=== PATIENT | female | born 1995 | race Caucasian/White ===

== ENCOUNTER 2017-05-29 01:48 | Inpatient (IN) | payer OTHER ==
[2017-05-29] MEDS ORDERED: ONDANSETRON 4 MG/2 ML VIAL IVP ONE ×2 (01:57→03:11)
[2017-05-29] MEDS ORDERED: NS 2,000 ML IV ONE (01:57)
--- NOTE | 2017-05-29 01:57 | EDPHY ---
H & P Stated Complaint: N/V since last night HPI/ROS: HPI CHIEF COMPLAINT: Nausea vomiting times 24 hours HISTORY OF PRESENT ILLNESS: This patient very pleasant 21-year-old female, she is insulin-dependent diabetic, type 1, remote history of DKA and age 7. She presents emergency room at 2 o'clock in the morning with nausea vomiting. Abdominal cramps. No diarrhea. Low-grade fever 99.9. She distally report shortness of breath and tachypnea. She states for the past 24 hours she has had countless episodes of vomiting. And now dry heaving. No significant pain. Past Medical History: Insulin-dependent diabetes, remote history of DKA Past Surgical History: No recent surgery Social History: Drinks wine occasionally, no daily use of drugs alcohol tobacco. Family History: Noncontributory ROS REVIEW OF SYSTEMS: A comprehensive 10 point review of systems is otherwise negative aside from elements mentioned in the history of present illness. Exam Constitutional appears nontoxic however noted to be tachypneic and tachycardic, triage nursing summary reviewed, vital signs reviewed, awake/alert. Eyes normal conjunctivae and sclera, EOMI, PERRLA. HENT normal inspection, atraumatic, extremely dry mucous membranes, no epistaxis, neck supple/ no meningismus, no raccoon eyes. Respiratory clear to auscultation bilaterally, normal breath sounds, no respiratory distress, no wheezing. Cardiovascular rate normal, regular rhythm, no murmur, no edema, distal pulses normal. Gastrointestinal soft, non-tender, no rebound, no guarding, normal bowel sounds, no distension, no pulsatile mass. Genitourinary no CVA tenderness. Musculoskeletal no midline vertebral tenderness, full range of motion, no calf swelling, no tenderness of extremities, no meningismus, good pulses, neurovascularly intact. Skin pink, warm, & dry, no rash, skin atraumatic. Neurologic awake, alert and oriented x 3, AAOx3, moves all 4 extremities equally, motor intact, sensory intact, CN II-XII intact, normal cerebellar, normal vision, normal speech. Psychiatric normal mood/affect. Heme/Lymph/Immune no lymphadenopathy. Differential Diagnosis: Includes but is not limited to in a particular order, DKA, honk, dehydration, electrolyte disturbance, infection Medical Decision Making: Plan for this patient IV establishment IV fluid bolus 2 L normal saline, IV Zofran for nausea check electrolytes, check for DKA. Re-evaluation: 0242AM: This patient's chemistry has resulted sugar over 600. Very low bicarb. Patient is in DKA. Patient is receiving 2 L normal saline at this time. She will be started on insulin drip. Patient be admitted to the ICU for DKA. Spoke with Dr. Wilburn who agrees to admit. Patient be admitted to the ICU. She is hemodynamically stable. Noted to be tachypneic due to acidosis. Insulin drip ordered. No Insulin bolus. She is receiving 2 L of fluid at this time. 0259AM: I did go and evaluate this patient's arms her bilateral upper arms where her insulin pump is injected she has 2 areas of redness at the injection sites 1 on both arms posterior upper. Appear to be micro abscesses and cellulitis. This may be the cause of her DKA. We will obtain blood cultures. Started on vancomycin. 0310AM: Posterior arms bilaterally show 2 very discrete small abscesses where she places her insulin pump. The 1 on the left is worse than the 1 on the right. Under ultrasound guidance I was able to see cellulitis of both upper extremities with a very small tiny abscess on both sides 2 cm x 2 cm. Given how sick she is with elevated white count, DKA, low-grade temperature, tachycardia, tachypnea, elevated lactic acid, I do feel the patient would benefit from drainage of these 2 abscess. I and D will be performed both arms. Here in the emergency room. Culture to follow. Procedure: I+D: I performed bilateral arm I and D procedure. 2 small abscesses were drained. Lidocaine with epinephrine 5 cc were instilled in both arm abscess. Stab incision was made with 11 blade scalpel. Very small amount of pus came from the left arm abscess TWO ccs. And right arm abscess stab incision was made TWO ccs of pus removed. Of note this patient had elevated lactic acid. 3.5. She is not hypotensive. She is not febrile. Elevated lactic acid is most likely due to dehydration with nausea vomiting and also DKA. Source: Patient - Personal History LMP (Females 10-55): Now Current Tetanus/Diphtheria Vaccine: Yes Current Tetanus Diphtheria and Acellular Pertussis (TDAP): Yes Tetanus Vaccine Date: <10 years - Medical/Surgical History Hx Asthma: No Hx Chronic Respiratory Disease: No Hx Diabetes: Yes Hx Cardiac Disease: No Hx Renal Disease: No Hx Cirrhosis: No Hx Alcoholism: No Hx HIV/AIDS: No Hx Splenectomy or Spleen Trauma: No Other PMH: Diabetes Type I, Diagnoses at age 7; Celiac dz - Social History Smoking Status: Never smoked Constitutional: Initial Vital Signs Temperature (C) 36.8 C 05/29/17 01:50 Heart Rate 117 H 05/29/17 01:50 Respiratory Rate 24 H 05/29/17 01:50 Blood Pressure 132/69 H 05/29/17 01:50 O2 Sat (%) 97 05/29/17 01:50 O2 Delivery Mode Room Air Allergies/Adverse Reactions: erythromycin base [Erythromycin Base] Allergy (Intermediate, Verified 05/29/17 01:52) Vomiting Home Medications: Medication Instructions Recorded Insulin Pump, Patient Own 1 ea MISC Q3D #0 01/29/16 Albuterol [Proventil Inhaler HFA 1 - 2 puffs IH DAILY PRN 05/29/17 (*)] Norethindrone AC-Eth Estradiol 1 each PO DAILY 05/29/17 [Loestrin 21 1-20 Tablet] Medical Decision Making - Data Points Laboratory Results: Laboratory Results 05/29/17 02:06 05/29/17 02:06 Medications Given: Cephalexin HCl (Keflex) 500 mg PO Q6HRS AMERICO PRN Reason: Protocol Stop: 06/28/17 16:14 Last Admin: 05/29/17 17:50 Dose: Not Given Insulin Human Regular 100 unit (/ Sodium Chloride) 101 mls @ 0 mls/hr IV AD AMERICO ; Per Protocol PRN Reason: Protocol Stop: 11/25/17 03:21 Last Admin: 05/29/17 16:10 Dose: 101 mls Dextrose/Sodium Chloride (D5w Ns) 1,000 mls @ 0 mls/hr IV AD AMERICO; Per Protocol PRN Reason: Protocol Stop: 11/25/17 03:21 Last Admin: 05/29/17 10:57 Dose: 1,000 mls Ondansetron HCl (Zofran) 4 mg IVP Q4HRS PRN PRN Reason: Nausea/Vomiting, Can't Take PO Stop: 11/25/17 03:11 Last Admin: 05/29/17 08:15 Dose: 4 mg Pantoprazole Sodium (Protonix) 40 mg PO DAILY AMERICO Stop: 11/25/17 10:29 Last Admin: 05/29/17 10:57 Dose: 40 mg Discontinued Medications Sodium Chloride (Ns) 2,000 mls @ 0 mls/hr IV EDNOW ONE; Wide Open PRN Reason: Protocol Stop: 05/29/17 01:58 Last Admin: 05/29/17 02:00 Dose: 2,000 mls Insulin Human Regular 100 unit / Miscellaneous Medication 1 ea/ Sodium Chloride 101 mls @ 3 mls/hr IV EDNOW ONE PRN Reason: Protocol Stop: 05/30/17 12:17 Last Admin: 05/29/17 03:02 Dose: 101 mls Vancomycin/Sodium Chloride (Vancomycin 1 Gm (Premix)) 250 mls @ 250 mls/hr IV EDNOW ONE PRN Reason: Protocol Stop: 05/29/17 03:57 Last Admin: 05/29/17 03:26 Dose: 250 mls Sodium Chloride (Ns) 1,000 mls @ 500 mls/hr IV ONCE ONE Stop: 05/29/17 05:59 Last Admin: 05/29/17 04:06 Dose: 1,000 mls Sodium Chloride (Ns) 1,000 mls @ 250 mls/hr IV Q4H AMERICO Stop: 05/29/17 13:59 Last Admin: 05/29/17 10:58 Dose: 1,000 mls Vancomycin HCl 750 mg/ (Dextrose) 150 mls @ 150 mls/hr IV Q12H AMERICO Stop: 06/28/17 14:59 Last Admin: 05/29/17 15:04 Dose: Not Given Ondansetron HCl (Zofran) 4 mg IVP EDNOW ONE Stop: 05/29/17 01:58 Last Admin: 05/29/17 02:03 Dose: 4 mg Ondansetron HCl (Zofran) 4 mg IVP EDNOW ONE Stop: 05/29/17 03:12 Last Admin: 05/29/17 03:11 Dose: 4 mg Departure - Departure Disposition: [facility] Acute Clinical Impression: Hyperglycemia, Abscess DKA (diabetic ketoacidoses) Qualifiers: Diabetes mellitus type: type 1 Diabetes mellitus complication detail: without coma Qualified Code(s): E10.10 - Type 1 diabetes mellitus with ketoacidosis without coma Cellulitis Qualifiers: Site of cellulitis: extremity Site of cellulitis of extremity: upper extremity Laterality: unspecified laterality Qualified Code(s): L03.119 - Cellulitis of unspecified part of limb Condition: Critical
[2017-05-29 02:17] LABS: % IMMATURE GRANULYOCYTES 0.6 % (0.0-1.1); ABSOLUTE IMMATURE GRANULOCYTES 0.14 10^3/uL (0.00-0.10); ADD DIFF? NO; ADD MORPH? NO; ADD SCAN? NO; ATYPICAL LYMPHOCYTE FLAG 0 (0-99); FRAGMENT RBC FLAG 0 (0-99); HEMATOCRIT 50.1 % (38.0-47.0); HEMOGLOBIN 16.6 g/dL (12.6-16.3); LEFT SHIFT FLG 0 (0-99); LIPEMIA HEMOLYSIS FLAG 80 (0-99); MEAN CELL HEMOGLOBIN 31.1 pg (27.9-34.1); MEAN CELL HEMOGLOBIN CONCENTR. 33.1 g/dL (32.4-36.7); MEAN PLATELET VOLUME 10.9 fL (8.7-11.7); PLATELET CLUMPS FLAG 0 (0-99); PLATELET COUNT 426 10^3/uL (150-400); RED BLOOD CELL COUNT 5.33 10^6/uL (4.18-5.33); RED CELL DISTRIBUTION WIDTH 12.1 % (11.5-15.2)
[2017-05-29 02:32] LABS: ALANINE AMINOTRANSFERASE 30 IU/L (9-52); ALBUMIN 5.5 g/dL (3.5-5.0); ALKALINE PHOSPHATASE 111 IU/L (38-126); ASPARTATE AMINOTRANSFERASE 24 IU/L (14-46); BILIRUBIN,TOTAL 0.7 mg/dL (0.1-1.4); BILIRUBIN-CONJUGATED 0.4 mg/dL (0.0-0.5); BILIRUBIN-UNCONJUGATED 0.3 mg/dL (0.0-1.1); CALCIUM 10.6 mg/dL (8.5-10.4); CHLORIDE 98 mEq/L (97-110); CREATININE 1.4 mg/dL (0.6-1.0); GLOMERULAR FILTRATION RATE 47; POTASSIUM 6.2 mEq/L (3.5-5.2); SODIUM 136 mEq/L (134-144); TOTAL PROTEIN 9.5 g/dL (6.3-8.2)
[2017-05-29 02:37] LABS: CARBON DIOXIDE < 5 mEq/l (22-31)
[2017-05-29 02:38] LABS: GLUCOSE 615 mg/dL (70-100)
[2017-05-29] MEDS ORDERED: INSULIN REGULAR HUMAN 100 UNIT, COSIGN. REQUIRED 1 EA in NS 100 ML IV ONE (02:38)
[2017-05-29] MEDS ORDERED: VANCOMYCIN HCL/NORMAL SALINE 250 ML IV ONE (02:58)
[2017-05-29] MEDS ORDERED: ACETAMINOPHEN 325 MG TAB PO PRN (03:12)
[2017-05-29] MEDS ORDERED: ONDANSETRON 4 MG/2 ML VIAL IVP PRN (03:12)
[2017-05-29] MEDS ORDERED: INSULIN REGULAR HUMAN 100 UNIT/ML IVP PRN (03:22)
[2017-05-29] MEDS ORDERED: D10W 250 ML PRN HYPOGLYCEMIA IV (03:22)
[2017-05-29] MEDS ORDERED: NS 1,000 ML IV ONE (04:00)
[2017-05-29 04:05] LABS: COLOR PALE YELLOW; LEUKOCYTE ESTERASE,URINE NEGATIVE (NEGATIVE); NITRITE,URINE NEGATIVE (NEGATIVE)
[2017-05-29 04:10] LABS: MUCUS TRACE /lpf (NONE-1+)
--- NOTE | 2017-05-29 04:15 | GHP ---
[f rep st] HISTORY AND PHYSICAL DATE OF ADMISSION: 05/29/2017 CHIEF COMPLAINT: Nausea, vomiting. HISTORY OF PRESENT ILLNESS: This is a 21-year-old female with type 1 diabetes who uses an insulin po d who presents with about 3 days of not feeling well. This began on Sunday. She uses insulin pods w hich she fills with insulin, this lasts 3 days and provides her with continuous insulin. On Sunday, she moved her pod from her right arm to her left arm. She noticed that there was a small area of red ness around where her pod was. She was concerned that the pod may have not been functioning. Since then, she has had ongoing nausea and some vomiting. Sunday, she was able to eat a little bit. The n, she continued to get worse, again. The evening of her presentation, she began to feel extremely t achypneic. She did have some fevers over the past 24 hours. She has some pain at the pod site. The redness is very atypical for these pods. She did have an abscess in her hip when she was much young er. She has been feeling confused for the past few days. PAST MEDICAL/SURGICAL HISTORY: 1. Diabetes mellitus type 1. 2. Celiac. MEDICATIONS: Please see medication reconciliation. ALLERGIES: Erythromycin. FAMILY HISTORY: No diabetes. SOCIAL HISTORY: She does not smoke tobacco. She occasionally drinks alcohol. Her mother is at her bedside. REVIEW OF SYSTEMS: 10-point review of systems is conducted and is negative, except per HPI. PHYSICAL EXAMINATION: VITAL SIGNS: Blood pressure 143/68, heart rate was as high as 117, respiratio n rate is 24, satting 97% on room air, temperature 36.8. GENERAL: The patient is a distressed-appea ring female who has deep and rapid inhalation. HEENT: Show her to be normocephalic, atraumatic. CA RDIOVASCULAR: Shows her to have a regular rate and rhythm. No murmurs, rubs, or gallops. PULMONARY : Shows lungs clear to auscultation bilaterally. She is very tachypneic. ABDOMEN: Soft, nontender , nondistended. SKIN: Shows her to have on her bilateral arms an area of redness with some warmth. The 1 on the left arm is slightly fluctuant. Warmth is a few centimeters. The area of redness is p robably 4 cm in diameter. : Shows no Lux. NEUROLOGIC: Shows her to be alert and oriented x3. She is moving all extremities. PSYCHIATRIC: Shows a normal mood and affect. LABORATORY DATA: White count is 24,000, platelets are 426. Lactate is 3.5. Bicarb is undetectable. Potassium 6.2, glucose is 615, creatinine is 1.4. DATA: 1. I discussed this with Dr. Monteiro. 2. I reviewed her old chart, including her hospitalization in 2015 for DKA. IMPRESSION AND PLAN: A 21-year-old female with diabetic ketoacidosis. 1. Diabetic ketoacidosis: This is quite severe and critical. She will be admitted to the intensive care unit for IV insulin, aggressive IV hydration, frequent laboratory monitoring to follow her elec trolytes closely. I am concerned that a skin infection may be driving her diabetic ketoacidosis. 2. Cellulitis and abscess: This seems to be where her pods had been placed. They are being I and D in the emergency department, this will be sent for culture. Pending culture results, we will provid e her with vancomycin. 3. Acute kidney injury: Prerenal. Follow with aggressive hydration. 4. Leukocytosis: May be stress in the setting of her acute diabetic ketoacidosis, but also concerni ng for infection. We will treat as above. BILLING: I spent 40 minutes of critical care time managing severe acidosis. /[id number]/MODL
[2017-05-29 05:07] LABS: PCO2 VENOUS 20 mmHg (40-44); PO2 VENOUS 44 mmHg (35-40); TCO2 VENOUS 5 mEq/L (23-27); VEN MEASURED OXYGEN SATURATION 61 % (65-75)
[2017-05-29 05:14] LABS: % IMMATURE GRANULYOCYTES 0.8 % (0.0-1.1); ABSOLUTE IMMATURE GRANULOCYTES 0.19 10^3/uL (0.00-0.10); ADD DIFF? NO; ADD MORPH? NO; ADD SCAN? NO; ATYPICAL LYMPHOCYTE FLAG 0 (0-99); FRAGMENT RBC FLAG 0 (0-99); HEMATOCRIT 44.6 % (38.0-47.0); HEMOGLOBIN 14.6 g/dL (12.6-16.3); LEFT SHIFT FLG 10 (0-99); LIPEMIA HEMOLYSIS FLAG 80 (0-99); MEAN CELL HEMOGLOBIN 31.3 pg (27.9-34.1); MEAN CELL HEMOGLOBIN CONCENTR. 32.7 g/dL (32.4-36.7); MEAN CELL VOLUME 95.5 fL (81.5-99.8); MEAN PLATELET VOLUME 10.8 fL (8.7-11.7); PLATELET CLUMPS FLAG 10 (0-99); PLATELET COUNT 374 10^3/uL (150-400); RED BLOOD CELL COUNT 4.67 10^6/uL (4.18-5.33); RED CELL DISTRIBUTION WIDTH 12.2 % (11.5-15.2)
[2017-05-29 05:40] LABS: ALANINE AMINOTRANSFERASE 32 IU/L (9-52); ALBUMIN 4.4 g/dL (3.5-5.0); ALKALINE PHOSPHATASE 90 IU/L (38-126); ASPARTATE AMINOTRANSFERASE 18 IU/L (14-46); BILIRUBIN,TOTAL 0.4 mg/dL (0.1-1.4); CALCIUM 8.6 mg/dL (8.5-10.4); CHLORIDE 110 mEq/L (97-110); CHOLESTEROL 154 mg/dL (140-200); CHOLESTEROL/HDL RATIO 3.02 RATIO (1.00-4.44); CREATININE 1.2 mg/dL (0.6-1.0); GLOMERULAR FILTRATION RATE 56; GLUCOSE 389 mg/dL (70-100); HIGH DENSITY LIPOPROTEIN 51 mg/dL (40-75); LDL/HDL RATIO 1.22 RATIO (1.00-3.22); LOW DENSITY LIPOPROTEIN 62 mg/dL (60-100); NON-HIGH DENSITY LIPOPROTEIN 103 mg/dL (90-129); POTASSIUM 5.7 mEq/L (3.5-5.2); SODIUM 141 mEq/L (134-144); TOTAL PROTEIN 7.6 g/dL (6.3-8.2); TRIGLYCERIDE 208 mg/dL (35-135); VERY LOW DENSITY LIPOPROTEINS 41 mg/dL (8-25)
[2017-05-29 06:02] LABS: CARBON DIOXIDE < 5 mEq/l (22-31)
[2017-05-29] MEDS: NS 1,000 ML IV SCH ×2 (06:10→10:58)
[2017-05-29 10:18] LABS: ANION GAP 21 mEq/L (8-16); CALCIUM 8.3 mg/dL (8.5-10.4); CHLORIDE 112 mEq/L (97-110); CREATININE 1.1 mg/dL (0.6-1.0); GLOMERULAR FILTRATION RATE > 60; GLUCOSE 232 mg/dL (70-100); POTASSIUM 5.2 mEq/L (3.5-5.2); SODIUM 139 mEq/L (134-144)
[2017-05-29 10:45] LABS: HEMOGLOBIN A1C 12.4 % (4.0-6.0)
[2017-05-29] MEDS: D5W NS 1,000 ML IV SCH (10:57)
[2017-05-29] MEDS: PANTOPRAZOLE SODIUM 40 MG TAB PO SCH (10:57)
[2017-05-29 13:21] LABS: CARBON DIOXIDE 6 mEq/l (22-31)
--- NOTE | 2017-05-29 13:44 | ASMTCMCOM ---
CM Note CM Note Notes: Patient admitted with DKA. Is employed and lives with mother, no hx of frequent hospital admissions for DKA. Will likely d/c home independently when medically stable. CM available if needs arise. Date Signed: 05/29/2017 01:43 PM Electronically Signed By:Arelis Alcaraz RN
[2017-05-29] MEDS ORDERED: 1/2 NS 1,000 ML IV SCH (14:00)
[2017-05-29 14:36] LABS: ANION GAP 12 mEq/L (8-16); CALCIUM 7.8 mg/dL (8.5-10.4); CARBON DIOXIDE 12 mEq/l (22-31); CHLORIDE 114 mEq/L (97-110); CREATININE 0.8 mg/dL (0.6-1.0); GLOMERULAR FILTRATION RATE > 60; GLUCOSE 228 mg/dL (70-100); POTASSIUM 4.1 mEq/L (3.5-5.2); SODIUM 138 mEq/L (134-144)
[2017-05-29] MEDS ORDERED: VANCOMYCIN 750 MG in D5W 150 ML IV SCH (15:00)
[2017-05-29] MEDS ORDERED: ALBUTEROL 200 PUFFS/18 GM MDI IH PRN (16:07)
[2017-05-29] MEDS: INSULIN REGULAR HUMAN 100 UNIT in NS 100 ML IV SCH ×2 (16:10→23:25)
--- NOTE | 2017-05-29 16:12 | HOSPPROG ---
Hospitalist Progress Note Assessment/Plan: 21 yo F with DM1 using an insulin pod at baseline presenting with pain/redness at pod site and DKA # DKA: pw glucose of 615 and HCO3 so low that gap was not able to be calculated , improving slowly but still on insulin gtt and gap still open this morning. Will transition to SC insulin when gap closed. # cellulitis: mild erythema and apparently fluctuance earlier around the pod site, cultures pending from aspiration but now with only very minimal erythema and no induration or fluctuance appreciated. Will dc vanco and transition to keflex and continue to monitor # holden: resolved, in the setting of profound acidosis and volume depletion with dka, now resolved # IP status, will need > 48 hours stay for evaluation/mgmt of above, high risk requiring insulin drip Patient new to my care. Old records reviewed and summarized as above. care plan reviewed with Dr. Ríos and multidisciplinary care team. Subjective: no significant overnight events, patient currently feeling better than yesterday, not nauseated, arm doesnt hurt, no fever or chills Objective: Vital Signs Temp Pulse Resp BP Pulse Ox 36.9 C 94 27 H 99/57 L 97 05/29/17 12:00 05/29/17 14:29 05/29/17 14:29 05/29/17 14:29 05/29/17 14:29 Microbiology 05/29/17 03:20 Gram Stain - Final Arm - Swab Laboratory Results 05/29/17 04:45 05/29/17 14:00 05/28/17 05/29/17 05/30/17 05:59 05:59 05:59 Intake Total 1500 2049.9 Output Total 900 Balance 1500 1149.9 awake alert nad anicteric op clear rrr no mrg cta b soft nt nd no cce warm dry well perfused oriented appropriate ICD10 Worksheet Patient Problems: Problems Problem Status Onset Cellulitis and abscess Acute Diabetes Acute Diabetic ketoacidosis Acute Dehydration Acute Acute pyelonephritis Acute ESBL (extended spectrum beta-lactamase) producing bacteria infection Acute Hyperglycemia Acute Cellulitis Acute Abscess Acute
[2017-05-29] MEDS: CEPHALEXIN 500 MG CAP PO SCH ×2 (16:29→17:50)
[2017-05-29 19:15] LABS: ANION GAP 7 mEq/L (8-16); CARBON DIOXIDE 14 mEq/l (22-31); CHLORIDE 113 mEq/L (97-110); CREATININE 0.8 mg/dL (0.6-1.0); GLOMERULAR FILTRATION RATE > 60; GLUCOSE 171 mg/dL (70-100); POTASSIUM 3.8 mEq/L (3.5-5.2); SODIUM 134 mEq/L (134-144)
[2017-05-29] MEDS ORDERED: PROTOCOL POTASSIUM 1 DOSE MISC PRN ×2 (21:27→21:37)
[2017-05-29] MEDS ORDERED: POTASSIUM CL 10 MEQ TAB PO ONE (22:11)
[2017-05-30 01:19] LABS: ANION GAP 9 mEq/L (8-16); CALCIUM 7.5 mg/dL (8.5-10.4); CARBON DIOXIDE 14 mEq/l (22-31); CHLORIDE 115 mEq/L (97-110); CREATININE 0.7 mg/dL (0.6-1.0); GLOMERULAR FILTRATION RATE > 60; GLUCOSE 82 mg/dL (70-100); POTASSIUM 3.3 mEq/L (3.5-5.2); SODIUM 138 mEq/L (134-144)
[2017-05-30] MEDS: CEPHALEXIN 500 MG CAP PO SCH ×3 (01:26→11:56)
[2017-05-30] MEDS ORDERED: POTASSIUM CL 10 MEQ TAB PO ONE ×2 (01:30→06:14)
[2017-05-30] MEDS: ONDANSETRON DISINTEGRATING 4 MG TAB PO PRN ×3 (03:19→12:00)
[2017-05-30] MEDS: D5W NS 1,000 ML IV SCH ×2 (03:20→09:00)
[2017-05-30 05:53] LABS: ANION GAP 7 mEq/L (8-16); CALCIUM 7.2 mg/dL (8.5-10.4); CARBON DIOXIDE 14 mEq/l (22-31); CHLORIDE 113 mEq/L (97-110); CREATININE 0.7 mg/dL (0.6-1.0); GLOMERULAR FILTRATION RATE > 60; GLUCOSE 241 mg/dL (70-100); POTASSIUM 3.7 mEq/L (3.5-5.2); SODIUM 134 mEq/L (134-144)
[2017-05-30] MEDS ORDERED: Norethindrone Ac-Eth Estradiol [Loestrin 21 1-20 Tablet] PO SCH (09:00)
[2017-05-30] MEDS: PANTOPRAZOLE SODIUM 40 MG TAB PO SCH (09:07)
[2017-05-30] MEDS ORDERED: D50W 25 GM/50 ML SYR IVP PRN (11:05)
[2017-05-30] MEDS ORDERED: INSULIN GLARGINE 100 UNITS/ML SYRINGE SC SCH (11:15)
[2017-05-30 11:28] VITALS: BP 134/87; PULSE 92; RESP 24; TEMP 98; O2SAT 99
[2017-05-30] MEDS ORDERED: INSULIN LISPRO 100 UNIT/ML SC SCH (12:00)
--- NOTE | 2017-05-30 13:48 | PDDCSUM ---
Discharge Summary Discharge Summary: Dates of service 05/29-05/30/17 Discharge dx: # DKA # DM1--poorly controlled # cellulitis # holden Consultations: critical care medicine Discharge dx: # DKA: pw glucose of 615 and HCO3 so low that gap was not able to be calculated , now improved, will dc on glargine and SSI until f/u with endocrine to discuss whether to resume pods. She has been slightly high but this has been her baseline for some time # DM1: poorly controlled, AIc > 12, discussed with patient and mother, she will get closer f/u # cellulitis: mild erythema and apparently fluctuance earlier around the pod site, cultures from aspiration with MSSA and very slight erythema only remaining, continue keflex # holden: resolved, in the setting of profound acidosis and volume depletion with dka, now resolved dc home f/u with endocrine for ongoing dm managmenet
== END 2017-05-30 14:32 | disposition home or self-care (01) | DRG 638 ==
LOC: F2N 03:49
PROVIDERS: ADMIT Student in an Organized Health Care Education/Training Program; ATTEND Student in an Organized Health Care Education/Training Program
DX: E10.10 Type 1 diabetes mellitus with ketoacidosis without coma (principal); L03.113 Cellulitis of right upper limb; L03.114 Cellulitis of left upper limb; N17.9 Acute kidney failure, unspecified; B95.61 Methicillin susceptible Staphylococcus aureus infection as the cause of diseases classified elsewhere; Z96.41 Presence of insulin pump (external) (internal); Z79.4 Long term (current) use of insulin
CPT/HCPCS: 82947-QW; 96374; J1815; J2405; J3370